=== PATIENT | female | born 1980 | race Caucasian/White ===

== ENCOUNTER 2018-11-29 11:25 | Outpatient (REF) | payer MEDICAID, SELFPAY ==
[2018-11-29 21:32] LABS: TSH 12.02 uIU/mL (0.36-3.74)
== END 2018-11-29 11:45 ==
LOC: NCHCN 11:25
PROVIDERS: PCP Nurse Practitioner Family; Visit Provider Nurse Practitioner Family
DX: E89.0 Postprocedural hypothyroidism (principal); E78.5 Hyperlipidemia, unspecified; F41.1 Generalized anxiety disorder; F17.210 Nicotine dependence, cigarettes, uncomplicated; E66.3 Overweight
CPT/HCPCS: 84443

== ENCOUNTER 2019-07-15 16:08 | Outpatient (REF) | payer MEDICAID, SELFPAY ==
[2019-07-15 22:05] LABS: TSH (W/Ref FT4) 0.22 uIU/mL (0.36-3.74)
[2019-07-15 22:24] LABS: FREE T4 1.14 ng/dL (0.76-1.46)
== END 2019-07-15 16:28 ==
LOC: NCHCN 16:08
PROVIDERS: PCP Nurse Practitioner Family; Visit Provider Nurse Practitioner Family
DX: E89.0 Postprocedural hypothyroidism (principal)
CPT/HCPCS: 84439; 84443

== ENCOUNTER 2019-10-15 11:48 | Outpatient (REF) | payer MEDICAID, SELFPAY ==
[2019-10-15 22:04] LABS: TSH (W/Ref FT4) 0.02 uIU/mL (0.36-3.74)
[2019-10-15 22:08] LABS: Hemoglobin A1C 5.2 % (3.8-5.6)
[2019-10-15 22:25] LABS: FREE T4 1.66 ng/dL (0.76-1.46)
== END 2019-10-15 12:08 ==
LOC: LBN 11:48
PROVIDERS: PCP Nurse Practitioner Family; Visit Provider Nurse Practitioner Family
DX: E89.0 Postprocedural hypothyroidism (principal); F41.1 Generalized anxiety disorder; E66.3 Overweight; Z13.1 Encounter for screening for diabetes mellitus
CPT/HCPCS: 83036; 84439; 84443

== ENCOUNTER 2019-12-16 14:01 | Outpatient (REF) | payer MEDICAID, SELFPAY ==
[2019-12-16 21:24] LABS: TSH 0.06 uIU/mL (0.36-3.74)
== END 2019-12-16 14:21 ==
LOC: NCHCN 14:01
PROVIDERS: PCP Nurse Practitioner Family; Visit Provider Nurse Practitioner Family
DX: E89.0 Postprocedural hypothyroidism (principal); F41.1 Generalized anxiety disorder
CPT/HCPCS: 84443

== ENCOUNTER 2020-05-15 20:52 | Outpatient (REF) | payer MEDICAID, SELFPAY ==
[2020-05-15 21:05] LABS: Calculated LDL 211 mg/dL (<100); Cholesterol 305 mg/dL (<200); HDL Cholesterol 76 mg/dL (40-60); TSH 0.47 uIU/mL (0.36-3.74); Triglyceride 91 mg/dL (<150)
== END 2020-05-15 20:53 | disposition home or self-care (01) ==
LOC: NCHCN 20:52
PROVIDERS: PCP Nurse Practitioner Family; Visit Provider Nurse Practitioner Family
DX: E78.5 Hyperlipidemia, unspecified (principal); E89.0 Postprocedural hypothyroidism; F41.1 Generalized anxiety disorder
CPT/HCPCS: 80061; 84443

== ENCOUNTER 2020-05-20 14:40 | Outpatient (REF) | payer MEDICAID, SELFPAY ==
[2020-05-20 14:26] LABS: Calculated LDL 203 mg/dL (<100); Cholesterol 289 mg/dL (<200); HDL Cholesterol 72 mg/dL (40-60); Triglyceride 73 mg/dL (<150)
== END 2020-05-20 14:41 | disposition home or self-care (01) ==
LOC: NCHCN 14:40
PROVIDERS: PCP Nurse Practitioner Family; Visit Provider Nurse Practitioner Family
DX: E78.5 Hyperlipidemia, unspecified (principal)
CPT/HCPCS: 80061

== ENCOUNTER 2020-06-15 09:53 | Outpatient (REF) | payer MEDICAID, SELFPAY ==
[2020-06-15 14:31] LABS: Calculated LDL 73 mg/dL (<100); Cholesterol 150 mg/dL (<200); HDL Cholesterol 65 mg/dL (40-60); Triglyceride 60 mg/dL (<150)
== END 2020-06-15 09:54 | disposition home or self-care (01) ==
LOC: NCHCN 09:53
PROVIDERS: PCP Nurse Practitioner Family; Visit Provider Nurse Practitioner Family
DX: E78.5 Hyperlipidemia, unspecified (principal); F41.1 Generalized anxiety disorder; F17.210 Nicotine dependence, cigarettes, uncomplicated; E66.3 Overweight
CPT/HCPCS: 80061

== ENCOUNTER 2021-02-25 08:58 | Outpatient (REF) | payer MEDICAID, SELFPAY ==
[2021-02-25 14:58] LABS: TSH 0.32 uIU/mL (0.36-3.74)
== END 2021-02-25 08:59 | disposition home or self-care (01) ==
LOC: NCHCN 08:58
PROVIDERS: PCP Nurse Practitioner Family; Visit Provider Nurse Practitioner Family
DX: E89.0 Postprocedural hypothyroidism (principal)
CPT/HCPCS: 84443

== ENCOUNTER 2022-05-30 11:56 | Outpatient (REF) | payer BC, MEDICAID, SELFPAY ==
--- NOTE | 2022-05-30 10:30 | PAPFT_PTH ---
PATIENT: Valencia Moralez LOC: [facility] U#:[id number] AGE/SX: 41/F ROOM: RE05/30/[address]: Fanny Nichole : 1980 BED: DIS: 05/30/2022 SPEC #: [id number] RECD: 05/31/22 13:05 STATUS: SURESH RESelina #: [id number] DESEAN: 05/30/22 10:[address]: aFnny Diehl DEPT: [facility] Cytology RECD BY: Pat Rodriguez Tissues: 1 - CX/ENDOCX FOR PAP SMEARS Procedures: PAP THIN PREP/[facility] Screening HPV DNA PROBE Comments: [id number] (HPV 16 & 18/45) (CHLAMYDIA/GC)
[2022-06-01 16:05] LABS: Chlamydia Result Negative (Negative); GC Result Negative (Negative)
== END 2022-05-30 11:57 | disposition home or self-care (01) ==
LOC: NCHCN 11:56
PROVIDERS: PCP Nurse Practitioner Family; Visit Provider Nurse Practitioner Family
DX: Z12.4 Encounter for screening for malignant neoplasm of cervix (principal); R87.611 Atypical squamous cells cannot exclude high grade squamous intraepithelial lesion on cytologic smear of cervix (ASC-H); Z11.51 Encounter for screening for human papillomavirus (HPV); R87.810 Cervical high risk human papillomavirus (HPV) DNA test positive; Z11.3 Encounter for screening for infections with a predominantly sexual mode of transmission
CPT/HCPCS: 87491; 87591; 88142; 87624

== ENCOUNTER 2023-06-01 14:21 | Outpatient (REF) | payer MEDICAID, SELFPAY ==
[2023-06-01 15:59] LABS: ALT 26 U/L (14-59); AST 19 U/L (15-37); Albumin 4.2 g/dL (3.4-5.0); Alkaline Phosphatase 98 U/L (46-116); Anion Gap 5.9 mmol/L (3-11); BUN 13 mg/dL (7-18); Bilirubin, Total 0.6 mg/dL (0.2-1.0); CO2 28.1 mmol/L (21.0-32.0); CREATININE 0.8 mg/dL (0.55-1.02); Calcium 9.3 mg/dL (8.5-10.1); Chloride 105 mmol/L (98-107); Estimated GFR 93.12 (mL/min/1.73m2); Glucose 89 mg/dL (74-106); Potassium 4.3 mmol/L (3.5-5.1); Sodium 139 mmol/L (136-145); TSH 1.07 uIU/Ml (0.36-3.74); Total Protein 7.8 g/dL (6.4-8.2)
[2023-06-01 17:09] LABS: Hemoglobin A1C 5.1 % (<5.7)
== END 2023-06-01 14:22 | disposition home or self-care (01) ==
LOC: NCHCN 14:21
PROVIDERS: PCP Nurse Practitioner Family; Visit Provider Nurse Practitioner Family
DX: Z13.6 Encounter for screening for cardiovascular disorders (principal); Z13.1 Encounter for screening for diabetes mellitus; E03.9 Hypothyroidism, unspecified
CPT/HCPCS: 80053; 83036; 84443

== ENCOUNTER 2024-08-26 18:32 | Outpatient (REF) | payer BC, SELFPAY ==
[2024-08-26 21:15] LABS: HCT 44.7 % (36.0-46.0); HGB 14.8 g/dL (11.2-15.7); MCH 30.8 pg (27.0-33.0); MCHC 33.1 % (32.0-36.0); MCV 93 fL (80-95); MPV 12.4 fL (8.0-11.0); Platelet Count 240 10^3/uL (130-400); RDW-SD 41.2 fL; WBC 7.04 10^3/uL (4.4-10.8)
[2024-08-26 21:35] LABS: ALT 56 U/L (14-59); AST 20 U/L (15-37); Albumin 4.3 g/dL (3.4-5.0); Alkaline Phosphatase 145 U/L (46-116); Anion Gap 1.6 mmol/L (3-11); BUN 10 mg/dL (7-18); Bilirubin, Total 0.4 mg/dL (0.2-1.0); CO2 34.4 mmol/L (21.0-32.0); CREATININE 0.7 mg/dL (0.55-1.02); Calculated LDL 104 mg/dL (<100); Chloride 103 mmol/L (98-107); Cholesterol 208 mg/dL (<200); Estimated GFR 108.62 (mL/min/1.73m2); Glucose 94 mg/dL (74-106); HDL Cholesterol 66 mg/dL (>or=50); Potassium 4.4 mmol/L (3.5-5.1); Sodium 139 mmol/L (136-145); TSH 0.11 uIU/mL (0.36-3.74); Total Protein 7.6 g/dL (6.4-8.2); Triglyceride 191 mg/dL (<150)
[2024-08-26 21:54] LABS: Ferritin 62 ng/mL (8-252)
== END 2024-08-26 18:33 | disposition home or self-care (01) ==
LOC: NCHCN 18:32
PROVIDERS: PCP Nurse Practitioner Family; Visit Provider Nurse Practitioner Family
DX: E03.9 Hypothyroidism, unspecified (principal); E78.5 Hyperlipidemia, unspecified; G25.81 Restless legs syndrome; E66.811 Obesity, class 1; Z68.33 Body mass index [BMI] 33.0-33.9, adult
CPT/HCPCS: 80053; 80061; 85027; 82728; 84443